=== PATIENT | male | born 1980 | race Caucasian/White ===

== ENCOUNTER 2019-04-01 08:44 | Day surgery (SDC) | payer OTHER ==
[~2019-04-01] VITALS: Ht 188 cm; Wt 83.6 kg
[2019-04-01] VITALS (7 sets, daily range): BP systolic 64–121; BP diastolic 50–82; PULSE 57–73; TEMP 97.3–98.1
[2019-04-01] MEDS ORDERED: DOXYCYCLINE 10100 MG PO (09:01)
[2019-04-01] MEDS ORDERED: PROPECIA1 MG PO (09:01)
--- NOTE | 2019-04-01 14:12 | NUR ---
[facility] A/O, VERY SLEEPY. VSS. DENIES NAUSEA OR PAIN. AT PT SIDE. WILL CONT TO MONITOR PROGRESS.
--- NOTE | 2019-04-01 14:23 | NUR ---
NOTED BP 64/53. PT SLEEPY, HOWEVER IS ALERT, AROUSES TO NAME, WILL ANSWER QUESTIONS [id number]. TALKING WITH . ALL OTHER VS ARE WNL. PT TOLERATING FOOD AND FLUIDS WITHOUT C/O'S. WILL MONITOR PROGRESSION
--- NOTE | 2019-04-01 14:35 | NUR ---
PT C/O SLIGHT NAUSEA. SPRITE PROVIDED. NO VOMITING. PT VOICED WANTING TO GO HOME. VSS, BP STABLE. PT ALERT, DENIES PAIN OR ANY OTHER DISCOMFORT. IV DC'D TO RIGHT FOREARM. DISCHARGE INSTRUCTIONS GIVEN WITH UNDERSTANDING VOICED BY THE PATIENT AND HIS . PT DC'D PER WC TO FAMILY VEHICLE.
== END 2019-04-01 14:39 ==
LOC: SDCO 08:44
DX: K92.1 Melena (principal); R19.7 Diarrhea, unspecified; K64.0 First degree hemorrhoids; Z83.71 Family history of colonic polyps; Z80.0 Family history of malignant neoplasm of digestive organs
CPT/HCPCS: J2250; J3010; J7030

== ENCOUNTER → 2021-01-09 | Outpatient (CLI) | payer OTHER ==
[~2021-01-09] MED LIST: DOXYCYCLINE 10100 MG PO; PROPECIA1 MG PO
== END ==
LOC: COL.RAD 13:10
DX: M51.36 Other intervertebral disc degeneration, lumbar region (principal); M47.816 Spondylosis without myelopathy or radiculopathy, lumbar region